=== PATIENT | female | born 1970 ===

== ENCOUNTER 2021-12-24 08:08 | Emergency (ER) | payer SELFPAY ==
[~2021-12-24] VITALS: Ht 170.2 cm; Wt 78.2 kg
[2021-12-24 08:14] VITALS: BP 194/127
[2021-12-24 08:15] VITALS: BP 191/126
[2021-12-24 08:25] VITALS: BP 191/126
== END 2021-12-24 08:31 | disposition left against medical advice (07) | DRG 951 ==
LOC: ED 08:08 → LWOBS 08:23
DX: Z53.21 Procedure and treatment not carried out due to patient leaving prior to being seen by health care provider (principal)